=== PATIENT | female | born 2000 | race Two or more races ===

== ENCOUNTER 2024-07-21 22:33 | Emergency (ER) | payer MEDICAID, OTHER ==
[~2024-07-21] VITALS: Ht 152.4 cm; Wt 76.5 kg
[2024-07-21 22:45] VITALS: BP 120/66; PULSE 121; RESP 18; O2SAT 100
[2024-07-21 23:09] LABS: Basophils # (auto) 0.1 10 ^3/uL (0-0.2); Basophils % (auto) 0.5 % (0.0-2.0); Eosinophils # (auto) 0.1 10 ^3/uL (0-0.8); Eosinophils % (auto) 1.1 % (0.0-7.0); Hematocrit 40.2 % (36.0-46.0); Hemoglobin 13.7 g/dL (12.2-16.2); Lymphocytes # (auto) 2.7 10 ^3/uL (0.4-5.4); Lymphocytes % (auto) 21.2 % (10.0-50.0); Mean Corpuscular Hemoglobin 31.1 pg (28.0-32.0); Mean Corpuscular Volume 91.2 fL (80.0-100.0); Monocytes # (auto) 0.9 10 ^3/uL (0-1.3); Monocytes % (auto) 7.2 % (0.0-12.0); Neutrophils # (auto) 8.8 10 ^3/uL (1.6-8.6); Nucleated Red Blood Cells % 0.1 %; Platelet Count (auto) 211 10^3/uL (140-450); Red Blood Cells 4.41 10^6/uL (4.0-5.20); Red Cell Distribution Width 13.6 % (11.8-14.3); White Blood Cell 12.6 10^3/uL (4.4-10.8)
[2024-07-21 23:18] LABS: Urine Bacteria None Seen /hpf (None Seen)
[2024-07-21 23:20] LABS: Potassium 3.5 mmol/L (3.5-5.1); Sodium 140 mmol/L (136-145)
[2024-07-21 23:21] LABS: Anion Gap 8 (5-15); Calcium 9.6 mg/dL (8.7-10.4); Carbon Dioxide 24 mmol/L (20-31)
[2024-07-21 23:24] LABS: Urine Blood Negative /uL (Negative); Urine Clarity Clear (Clear); Urine Color Light-Yellow (Yellow); Urine Protein, UAD Negative (Negative); Urine Specific Gravity 1.018 (1.001-1.035); Urine Squamous Epithelial Cell FEW /hpf (<5); Urine Urobilinogen Normal (Negative); Urine WBC 1 /hpf (0 - 5); Urine pH 6.5 (5.0-9.0)
[2024-07-21 23:26] LABS: BUN/Creatinine Ratio 22.9 (10.0-20.0); Blood Urea Nitrogen 11 mg/dL (9-23); Chloride 108 mmol/L (98-107); Glucose 92 mg/dL (74-106)
--- NOTE | 2024-07-21 23:49 | DVH ---
OB EVALUATION, LESS THAN 14 WEEKS CLINICAL HISTORY: pelvic pain COMPARISON: None TECHNIQUE: Grayscale, color-flow Doppler, and spectral Doppler ultrasound of the pelvis is performed by transabdominal technique. FINDINGS: The uterus measures 10.0 x 7.7 x 6.3 cm. Intrauterine gestational sac and pole are identified. Yolk sac is also noted. Mean gestational sac diameter 3.7 cm. [place]-rump length 2.2 cm. Average ultrasound age 8 weeks 6 days. Estimated due date 02/24/2025. heart rate is 161 beats per minute. Small hypoechoic focus adjacent to the gestational sac measuring approximately 1.3 x 0.4 x 0.9 cm. The right ovary measures 2.9 x 2.4 x 2.3 cm. The left ovary measures 3.6 x 2.2 x 2.1 cm. Both ovarie s demonstrate dopplerable blood flow on spectral analysis. No significant free fluid identified in the cul-de-sac. IMPRESSION: Single living intrauterine gestation as above. Suspected small subchorionic hematoma. Recommend follow-up as clinically indicated.
--- NOTE | 2024-07-21 23:56 | ED.PDOC ---
OUTREACH ANALYST HPI Comments 23-year-old female complaining of pelvic pain and cramping. States the pain starts on the left-sided and radiates states solo. Patient states she was nine weeks . He was seen last week he was told she has a small blood sac in her uterus. States she was had no bleeding. She gets intermittent throbbing in her pelvic and vaginal region. States she does not see her OBGYN until beginning of the year. Says the pain has gotten worse over the last week. Chief Complaint: Abdominal Pain Time Seen by MD: 22:44 Reviewed Notes: Nurses Notes Allergies: Coded Allergies: Amoxicillin (Verified Allergy, Unknown, 07/21/24) Information Source: Patient Past Medical History PAST MEDICAL HISTORY: Denies Surgical History: Denies all surgeries CRA OFFICER History: No Pertinent CRA OFFICER History Constitutional: denies: chills, diaphoresis, fatigue, fever, malaise, sweats, weakness, others EENTM: denies: blurred vision, double vision, ear bleeding, ear discharge, ear drainage, ear pain, ear ringing, eye pain, eye redness, hearing loss, mouth pain, mouth swelling, nasal discharge, nose bleeding, nose congestion, nose kaleigh n, photophobia, tearing, throat pain, throat swelling, voice changes, others Respiratory: denies: cough, hemoptysis, orthopnea, SOB at rest, shortness of breath, SOB with excertion, stridor, wheezing, others Cardiovascular: denies: chest pain, dizzy spells, diaphoresis, Dyspnea on exertion, edema, irregular heart beat, left arm pain, lightheadedness, palpitations, PND, syncope, others Gastrointestinal: reports: abdominal pain; denies: abdomen distended, blood streaked bowels, constipated, diarrhea, dysphagia, difficulty swallowing, hematemesis, melena, nausea, poor appetite, poor fluid intake, rectal bleeding, rectal pain, vomiting, others Genitourinary: reports: dyspareunia, ; denies: abnormal vagina bleeding, burning, dysuria, flank pain, frequency, hematuria, incontinence, pain, vagina discharge, urgency, others Neurological: denies: dizziness, fainting, headache, left sided numbness, left sided weakness, numbness, paresthesia, pre-existing deficit, right sided numbness, right sided weakness, seizure, speech problems, tingling, tremors, weakness, others Musculoskeletal: denies: back pain, gout, joint pain, joint swelling, muscle pain, muscle stiffness, neck pain, others Integumetry: denies: bruises, change in color, change in hair/nails, dryness, laceration, lesions, lumps, rash, wounds, others Allergic/Immunocompromised: denies: Difficulty Healing, Frequent Infections, Hives, Itching, others Hematologic/Lymphatic: denies: anemia, blood clots, easy bleeding, easy bruising, swollen glands, others Physical Exam General Appearance: No Apparent Distress, Normal HEENT: Normal ENT Inspection, Pharynx Normal, TMs Normal Neck: Full Range of Motion, Non-Tender, Normal, Normal Inspection Respiratory: Chest Non-Tender, Lungs Clear, No Accessory Muscle Use, No Respiratory Distress, Normal Breath Sounds Cardiovascular: No Edema, No JVD, No Murmur, No Gallop, Normal Peripheral Pulses, Regular Rate/Rhythm Breast Exam: Deferred Gastrointestinal: No Organomegaly, Non Tender, No Pulsatile Mass, Normal Bowel Sounds, Soft Genitalia: Deferred Pelvic: Deferred Rectal: Deferred Extremities: No calf tenderness, Normal capillary refill, Normal inspection, Normal range of motion, Non-tender, No pedal edema Musculoskeletal : Apperance: Normal Neurologic: Alert, title supervisor II-XII nml as Tested, No Motor Deficits, Normal Affect, Normal Mood, No Sensory Deficits Cerebellar Function: Normal Reflexes: Normal Skin: Dry, Normal Color, Warm Lymphatic: No Adenopathy Was a procedure done? Was a procedure done?: No Differential Diagnosis (CRA OFFICER) Vaginal Bleeding: - Complete, - Incomplete, - Inevitable, - Missed X-Ray, Labs, Meds, VS Vital Signs Date Time Temp Pulse Resp B/P (MAP) Pulse Ox O2 Delivery O2 Flow Rate FiO2 07/21/24 22:45 98.9 121 18 120/66 (84) 100 Lab Test 07/21/24 22:55 07/21/24 22:47 Range/Units White Blood Count 12.6 H 4.4-10.8 10^3/uL Red Blood Count 4.41 4.0-5.20 10^6/uL Hemoglobin 13.7 12.2-16.2 g/dL Hematocrit 40.2 36.0-46.0 % Mean Corpuscular Volume 91.2 80.0-100.0 fL Mean Corpuscular Hemoglobin 31.1 28.0-32.0 pg Mean Corpuscular Hemoglobin Concent 34.0 32.0-36.0 g/dL Red Cell Distribution Width 13.6 11.8-14.3 % Platelet Count 211 140-450 10^3/uL Mean Platelet Volume 7.3 6.9-10.8 fL Neutrophils (%) (Auto) 70.0 37.0-80.0 % Lymphocytes (%) (Auto) 21.2 10.0-50.0 % Monocytes (%) (Auto) 7.2 0.0-12.0 % Eosinophils (%) (Auto) 1.1 0.0-7.0 % Basophils (%) (Auto) 0.5 0.0-2.0 % Neutrophils # (Auto) 8.8 H 1.6-8.6 10 ^3/uL Lymphocytes # (Auto) 2.7 0.4-5.4 10 ^3/uL Monocytes # (Auto) 0.9 0-1.3 10 ^3/uL Eosinophils # (Auto) 0.1 0-0.8 10 ^3/uL Basophils # (Auto) 0.1 0-0.2 10 ^3/uL Nucleated Red Blood Cells 0.1 % Sodium Level 140 136-145 mmol/L Potassium Level 3.5 3.5-5.1 mmol/L Chloride Level 108 H 98-107 mmol/L Carbon Dioxide Level 24 20-31 mmol/L Anion Gap 8 5-15 Blood Urea Nitrogen 11 9-23 mg/dL Creatinine 0.48 L 0.550-1.02 mg/dL Glomerular Filtration Rate Calc 135 >90 mL/min BUN/Creatinine Ratio 22.9 H 10.0-20.0 Serum Glucose 92 74-106 mg/dL Calcium Level 9.6 8.7-10.4 mg/dL Beta HCG, Quantitative 18004.0 H 1.5-4.2 mIU/mL Urine Color Light-yellow Yellow Urine Clarity Clear Clear Urine pH 6.5 5.0-9.0 Urine Specific [place] 1.018 1.001-1.035 Urine Protein Negative Negative Urine Ketones Negative Negative Urine Blood Negative Negative /uL Urine Nitrite Negative Negative Urine Bilirubin Negative Negative Urine Urobilinogen Normal Negative mg/dL Urine Leukocyte Esterase 1+ Negative /uL Urine RBC 2 0 - 4 /hpf Urine WBC 1 0 - 5 /hpf Urine Squamous Epithelial Cells Few <5 /hpf Urine Bacteria None seen None Seen /hpf Urine Glucose Normal Normal mg/dL X-Ray, Labs, Meds, VS Comment Imaging: X-rays and CT scans were reviewed and interpreted by this provider, imaging shows no fractures and no pathological disease. Pending radiology review. Laboratory: Labs reviewed and interpreted by this provider. No significant abnormalities noted. Patient has prior medical visits reviewed. Med reconciliation performed Vital signs reviewed Time of 1ST Reevaluation: 23:55 Reevaluation 1ST: Improved Patient Education/Counseling: Diagnosis, Treatment, Need For Follow Up (Follow up with OBGYN next available appointment) Family Education/Counseling: Diagnosis Departure 1 Departure Time of Disposition: 23:55 Impression: Primary Impression: First trimester Additional Impression: Subchorionic hemorrhage in first trimester Disposition: 01 HOME / SELF CARE / HOMELESS Condition: Fair Discharged With: Self Critical Care Note Critical Care Time?: No Stability Stability form required: No Heart Score Heart Score: Heart Score Response (Comments) Value History N/A 0 EKG N/A 0 Age N/A 0 Risk Factors N/A 0 Troponin N/A 0 Total 0 LUCIA CHARLTON SIMULATION SOFTWARE ENGINEER Jul 21, 2024 23:56
== END 2024-07-22 00:55 | disposition home or self-care (01) ==
LOC: ER 22:33
DX: O20.8 Other hemorrhage in early pregnancy (principal); O26.891 Other specified pregnancy related conditions, first trimester; R10.2 Pelvic and perineal pain; Z3A.09 9 weeks gestation of pregnancy; Z88.1 Allergy status to other antibiotic agents
CPT/HCPCS: 36415; 76801; 80048; 81001; 84702; 85025

== ENCOUNTER 2025-02-06 13:45 | Observation (INO) | payer MEDICAID ==
[2025-02-06 14:39] LABS: Hematocrit 39.7 % (36.0-46.0); Hemoglobin 13.6 g/dL (12.2-16.2); Mean Corpuscular Hemoglobin 30.7 pg (28.0-32.0); Mean Corpuscular Volume 90.0 fL (80.0-100.0); Nucleated Red Blood Cells % 0.0 %
[2025-02-06 14:48] LABS: Protein, Urine 32.3 mg/dL (1-14)
[2025-02-06 14:51] LABS: Urine Protein, UAD TRACE (Negative)
[2025-02-06 14:53] LABS: INR 0.92 (0.9-1.15); Partial Thromboplastin Time 28.2 SEC (24.5-34.5); Prothrombin Time 9.8 sec (9.3-11.8)
[2025-02-06 14:55] LABS: Alanine Aminotransferase 10 U/L (7-40); Albumin 3.8 g/dL (3.2-4.8); Anion Gap 10 (5-15); BUN/Creatinine Ratio 19.6 (10.0-20.0); Blood Urea Nitrogen 10 mg/dL (9-23); Calcium 9.2 mg/dL (8.7-10.4); Potassium 3.8 mmol/L (3.5-5.1); Sodium 140 mmol/L (136-145); Total Protein 6.0 g/dL (5.7-8.2); Uric Acid 4.2 mg/dL (3.1-7.8)
[2025-02-06 14:56] LABS: Alkaline Phosphatase 155 U/L (46-116); Bilirubin, Total 0.3 mg/dL (0.2-1.0); Carbon Dioxide 20 mmol/L (20-31); Chloride 110 mmol/L (98-107); Glucose 107 mg/dL (74-106)
--- NOTE | 2025-02-06 15:16 | DVH ---
BIOPHYSICAL PROFILE HISTORY: Possible SROM TECHNIQUE: Multiple transabdominal real-time grayscale sonographic images through the gravid uterus of the fetus with duplex Doppler color flow and M-mode spectral analysis FINDINGS: BIOPHYSICAL PROFILE: breathing score: 2 movement score: 2 tone score: 2 Quantitative COLUMBA score: 2 (COLUMBA: 16.39 Cm.) Total score: 8/8 The cervix obscured by head Single live fetus in cephalic presentation. heart rate 140 beats per minute. Grade 2 placenta without previa or abruption Single live fetus at 37 weeks 6 days Biophysical profile score 8/8 corresponding to an STEVE of 02/21/2025 IMPRESSION: 1. Biophysical profile score: 8/8
[2025-02-06] MEDS ORDERED: PREN-96 PO (15:45)
--- NOTE | 2025-02-07 07:42 | DVHDS2 ---
Physician Discharge Progress N Final Diagnosis: 37WKS IUP ROM RULED OUT Operations or Procedures: Operations or Procedures NST REACTIVE REVIWED,SONO Condition on Discharge: Good Disposition: Home Discharge Instructions: Diet: Regular Activity: No Restrictions, As Tolerated Medications: NA Follow Up Care: Specialist: 1W Discharge Statement: "Patient was advised to return to the ER or call 911 if any headaches, dizziness, shortness of breath, chest pain, abdominal pain, bleeding, fevers, or worsening of medical condition. Patient was counseled about treatment plan, medications, possible side effects, patientverbalized understanding. All questions were answered to the best of my ability. This discharge took greater then 30 minutes in planning, reviewing documentation, counseling the patient, and discussing with other team members." Visit Coding OBGYN Date of Service: Feb 06, 2025 Billing Provider: ISA CARRASCO DO LIME PLANT OPERATOR Common Visit Codes: 93707-[id number] OBS CARE (HIGH) LIME PLANT OPERATOR Procedure Codes: 87075-11- NON-STRESS TEST ISA CARRASCO DO Feb 07, 2025 07:41
== END 2025-02-06 16:03 | disposition home or self-care (01) ==
LOC: LDRP 13:45
PROVIDERS: ADMIT Obstetrics & Gynecology; ATTEND Obstetrics & Gynecology
DX: O13.3 Gestational [pregnancy-induced] hypertension without significant proteinuria, third trimester (principal); Z3A.37 37 weeks gestation of pregnancy; Z79.899 Other long term (current) drug therapy; Z98.890 Other specified postprocedural states
CPT/HCPCS: 36415; 59025; 76819; 80053; 81001; 82570; 84112; 84156; 84550; 85025; 85610; 85730; 86780; 87081; 94760; G0378

== ENCOUNTER 2025-02-13 06:32 | Observation (INO) | payer MEDICAID ==
[~2025-02-13 06:32] MED LIST: PREN-96 PO
[2025-02-13 10:54] LABS: Urine Protein, UAD Negative (Negative)
--- NOTE | 2025-02-13 10:57 | DVH ---
BIOPHYSICAL PROFILE HISTORY: PIH TECHNIQUE: Multiple transabdominal real-time grayscale sonographic images through the gravid uterus of the fetus with duplex Doppler color flow and M-mode spectral analysis FINDINGS: BIOPHYSICAL PROFILE: breathing score: 2 movement score: 2 tone score: 2 Quantitative COLUMBA score: 2 (COLUMBA: 15.4 Cm.) Total score: 8 The cervix not well visualized. Single live fetus in cephalic presentation. heart rate 156 beats per minute. Grade 2 posterior placenta without previa or abruption IMPRESSION: Biophysical profile score: 8
[2025-02-13 11:00] LABS: Hematocrit 38.2 % (36.0-46.0); Hemoglobin 12.9 g/dL (12.2-16.2); Mean Corpuscular Hemoglobin 30.7 pg (28.0-32.0); Mean Corpuscular Volume 91.0 fL (80.0-100.0); Nucleated Red Blood Cells % 0.1 %
[2025-02-13 11:13] LABS: Protein, Urine 22.2 mg/dL (1-14)
[2025-02-13 11:18] LABS: Anion Gap 10 (5-15); BUN/Creatinine Ratio 17.0 (10.0-20.0); Blood Urea Nitrogen 9 mg/dL (9-23); Calcium 9.3 mg/dL (8.7-10.4); Glucose 91 mg/dL (74-106); Potassium 3.7 mmol/L (3.5-5.1); Sodium 141 mmol/L (136-145); Uric Acid 4.4 mg/dL (3.1-7.8)
[2025-02-13 11:19] LABS: Alanine Aminotransferase < 9 U/L (7-40); Albumin 3.5 g/dL (3.2-4.8); Alkaline Phosphatase 146 U/L (46-116); Bilirubin, Total 0.3 mg/dL (0.2-1.0); Carbon Dioxide 19 mmol/L (20-31); Chloride 112 mmol/L (98-107); Total Protein 5.6 g/dL (5.7-8.2)
--- NOTE | 2025-02-15 08:19 | DVHDS2 ---
Physician Discharge Progress N Final Diagnosis: iup at 38wks [facility] Operations or Procedures: Operations or Procedures nst reactive reviwed,sono Condition on Discharge: Good Disposition: Home Discharge Instructions: Diet: Regular Activity: No Restrictions, As Tolerated Medications: na Follow Up Care: Primary Care Provider: 4d Discharge Statement: "Patient was advised to return to the ER or call 911 if any headaches, dizziness, shortness of breath, chest pain, abdominal pain, bleeding, fevers, or worsening of medical condition. Patient was counseled about treatment plan, medications, possible side effects, patientverbalized understanding. All questions were answered to the best of my ability. This discharge took greater then 30 minutes in planning, reviewing documentation, counseling the patient, and discussing with other team members." Visit Coding OBGYN Date of Service: Feb 13, 2025 Billing Provider: ISA CARRASCO DO PACKING TRACTOR MACHINE OPERATOR Common Visit Codes: [id number] OBS CARE (HIGH) PACKING TRACTOR MACHINE OPERATOR Procedure Codes: 70542-66- NON-STRESS TEST ISA CARRASCO DO Feb 15, 2025 08:19
== END 2025-02-13 11:52 | disposition home or self-care (01) ==
LOC: UNDOADMOB 10:04 → LDRP 10:04
PROVIDERS: ADMIT Obstetrics & Gynecology; ATTEND Obstetrics & Gynecology
DX: O13.3 Gestational [pregnancy-induced] hypertension without significant proteinuria, third trimester (principal); O62.9 Abnormality of forces of labor, unspecified; Z3A.38 38 weeks gestation of pregnancy; Z79.899 Other long term (current) drug therapy
CPT/HCPCS: 36415; 59025; 76819; 80053; 81001; 81002; 82570; 84156; 84550; 85025; 94760; G0378

== ENCOUNTER 2025-02-17 07:10 | Observation (INO) | payer MEDICAID ==
[~2025-02-17] VITALS: Ht 157.5 cm; Wt 88.9 kg
--- NOTE | 2025-02-17 13:34 | DVH ---
CLINICAL HISTORY: -induced hypertension. COMPARISON: US BIOPHYSICAL PROFILE on DOS: 02/13/25, US BIOPHYSICAL PROFILE on DOS: 02/06/25 TECHNIQUE: biophysical profile was performed. Transabdominal sonographic images of the fetus we re obtained. FINDINGS: The fetus is in cephalic position. heart rate measures 138 BPM. Amniotic fluid index measures 14.8 cm. The placenta is posterior in position without visualized evidence of previa or abru ption. BPP profile is an overall score of 8/8, with 2/2 points for breathing, with at least one episode of breathing over a 30 second duration during a 30 minute observation, 2/2 points for m ovements, with 3 or more discrete body or limb movements, 2/2 points for tone, with one or more episodes of extremity extension with return to flexion, or opening and closing of hand, and 2/ 2 points for amniotic fluid, with at least 1 pocket of amniotic fluid that measures 2 cm in 2 perpend icular planes. IMPRESSION: BPP score of 8/8.
--- NOTE | 2025-02-18 14:20 | DVHDS2 ---
Physician Discharge Progress N Final Diagnosis: 39wks pih ruled out Other Interventions Other Interventions nst reactive reviwed,sono Condition on Discharge: Good Disposition: Home Discharge Instructions: Diet: Regular Activity: Light activity Medications: na Follow Up Care: Specialist: 3d Discharge Statement: "Patient was advised to return to the ER or call 911 if any headaches, dizziness, shortness of breath, chest pain, abdominal pain, bleeding, fevers, or worsening of medical condition. Patient was counseled about treatment plan, medications, possible side effects, patientverbalized understanding. All questions were answered to the best of my ability. This discharge took greater then 30 minutes in planning, reviewing documentation, counseling the patient, and discussing with other team members." Visit Coding OBGYN Date of Service: Feb 17, 2025 Billing Provider: ISA CARRASCO DO CONCRETE BATCH PLANT OPERATOR Common Visit Codes: [id number] OBS CARE (HIGH) CONCRETE BATCH PLANT OPERATOR Procedure Codes: 53423-63- NON-STRESS TEST ISA CARRASCO DO Feb 18, 2025 14:19
== END 2025-02-17 13:54 | disposition home or self-care (01) ==
LOC: UNDOADMOB 11:02 → LDRP 11:02
PROVIDERS: ADMIT Obstetrics & Gynecology; ATTEND Obstetrics & Gynecology
DX: Z36.89 Encounter for other specified antenatal screening (principal); Z98.890 Other specified postprocedural states; Z79.899 Other long term (current) drug therapy; Z3A.39 39 weeks gestation of pregnancy
CPT/HCPCS: 59025; 76819; 81002; 94760; G0378

== ENCOUNTER 2025-02-21 08:00 | Observation (INO) | payer MEDICAID ==
--- NOTE | 2025-02-21 10:02 | DVH ---
CLINICAL HISTORY: Term . COMPARISON: US BIOPHYSICAL PROFILE on DOS: 02/17/25, US BIOPHYSICAL PROFILE on DOS: 02/13/25, US BIOPHY SICAL PROFILE on DOS: 02/06/25 TECHNIQUE: biophysical profile was performed. Transabdominal sonographic images of the fetus we re obtained. FINDINGS: The fetus is in cephalic position. heart rate measures 132 BPM. Amniotic fluid index measures 14.6 cm. The placenta is posterior in position without evidence of previa or abruption. Debr is visualized within the Amniotic fluid. BPP profile is an overall score of 8/8, with 2/2 points for breathing, with at least one episode of breathing over a 30 second duration during a 30 minute observation, 2/2 points for m ovements, with 3 or more discrete body or limb movements, 2/2 points for tone, with one or more episodes of extremity extension with return to flexion, or opening and closing of hand, and 2/ 2 points for amniotic fluid, with at least 1 pocket of amniotic fluid that measures 2 cm in 2 perpend icular planes. IMPRESSION: 1. BPP score of 8/8. 2. Debris visualized within the Amniotic fluid.
--- NOTE | 2025-02-21 15:15 | DVHDS2 ---
Physician Discharge Progress N Final Diagnosis: [id number] Operations or Procedures: Operations or Procedures nst reactive noted ,sono Condition on Discharge: Good Disposition: Home Discharge Instructions: Diet: Regular Activity: No Restrictions, As Tolerated Follow Up/Referral: Return to [facility]place tomorrow at 9:00 am for monitoring Medications: na Follow Up Care: Specialist: 1day for induction Discharge Statement: "Patient was advised to return to the ER or call 911 if any headaches, dizziness, shortness of breath, chest pain, abdominal pain, bleeding, fevers, or worsening of medical condition. Patient was counseled about treatment plan, medications, possible side effects, patientverbalized understanding. All questions were answered to the best of my ability. This discharge took greater then 30 minutes in planning, reviewing documentation , counseling the patient, and discussing with other team members." Visit Coding OBGYN Date of Service: Feb 21, 2025 Billing Provider: ISA CARRASCO DO RETAIL BUSINESS ANALYST Common Visit Codes: [id number] OBS CARE (HIGH) RETAIL BUSINESS ANALYST Procedure Codes: 02985-79- NON-STRESS TEST ISA CARRASCO DO Feb 21, 2025 15:15
== END 2025-02-21 14:14 | disposition home or self-care (01) ==
LOC: LDRP 08:00 → UNDOADMOB 08:00
PROVIDERS: ADMIT Obstetrics & Gynecology; ATTEND Obstetrics & Gynecology
DX: O48.0 Post-term pregnancy (principal); Z3A.40 40 weeks gestation of pregnancy; Z79.899 Other long term (current) drug therapy
CPT/HCPCS: 59025; 76819; 81002; G0378

== ENCOUNTER 2025-02-22 08:54 | Observation (INO) | payer MEDICAID ==
--- NOTE | 2025-02-22 11:27 | DVHDS2 ---
Physician Discharge Progress N Final Diagnosis: IUP 40+ wk, Term Secondary Diagnosis: Encounter for NST only Commentary: Commentary Not in labor Category 1 tracing Condition on Discharge: Stable Disposition: Home Discharge Instructions: Diet: Regular Activity: No Restrictions, As Tolerated Follow Up/Referral: Return to birthplace tomorrow morning at 7:00 AM for induction of labor. Return to hospital for decreased movement or any related concerns. Medications: na Follow Up Care: Discharge Statement: "Patient was advised to return to the ER or call 911 if any headaches, dizz iness, shortness of breath, chest pain, abdominal pain, bleeding, fevers, or worsening of medical condition. Patient was counseled about treatment plan, medications, possible side effects, patientverbalized understanding. All questions were answered to the best of my ability. This discharge took greater then 30 minutes in planning, reviewing documentation, counseling the patient, and discussing with other team members." Visit Coding OBGYN Date of Service: Feb 22, 2025 Billing Provider: KHURRAM FERNANDEZ DO AUTOMOTIVE MACHINIST Common Visit Codes: 89833-NVY/OBS SAME DATE (MOD) KHURRAM FERNANDEZ DO Feb 22, 2025 11:27
== END 2025-02-22 10:15 | disposition home or self-care (01) ==
LOC: LDRP 08:57
PROVIDERS: ADMIT Obstetrics & Gynecology; ATTEND Obstetrics & Gynecology
DX: O48.0 Post-term pregnancy (principal); Z98.890 Other specified postprocedural states; Z79.899 Other long term (current) drug therapy; Z3A.40 40 weeks gestation of pregnancy
CPT/HCPCS: 59025; 81002; 94760; G0378

== ENCOUNTER 2025-02-23 10:00 | Inpatient (IN) | payer MEDICAID ==
[~2025-02-23] VITALS: Ht 157.5 cm; Wt 89.8 kg
[2025-02-23] MEDS ORDERED: LIDOCAINE 2%HCL (LOCAL ANESTH.) INJ 20ML MDV IJ PRN (10:30)
[2025-02-23] MEDS ORDERED: BUTORPHANOL TARTRATE 2 MG/1 ML VIAL IV PRN ×2 (10:30)
[2025-02-23 10:59] LABS: Hematocrit 38.0 % (36.0-46.0); Hemoglobin 13.2 g/dL (12.2-16.2); Mean Corpuscular Hemoglobin 31.4 pg (28.0-32.0); Mean Corpuscular Volume 90.5 fL (80.0-100.0); Nucleated Red Blood Cells % 0.1 %
[2025-02-23 11:17] LABS: Albumin 3.8 g/dL (3.2-4.8); Anion Gap 13 (5-15); BUN/Creatinine Ratio 14.8 (10.0-20.0); Bilirubin, Total 0.4 mg/dL (0.2-1.0); Calcium 9.7 mg/dL (8.7-10.4); Potassium 3.6 mmol/L (3.5-5.1); Sodium 140 mmol/L (136-145); Total Protein 5.8 g/dL (5.7-8.2)
[2025-02-23 11:19] LABS: Alanine Aminotransferase 9 U/L (7-40); Alkaline Phosphatase 165 U/L (46-116); Blood Urea Nitrogen 9 mg/dL (9-23); Carbon Dioxide 17 mmol/L (20-31); Chloride 110 mmol/L (98-107); Glucose 140 mg/dL (74-106)
[2025-02-23 11:20] LABS: INR 0.92 (0.9-1.15); Partial Thromboplastin Time 30.5 SEC (24.5-34.5); Prothrombin Time 9.8 sec (9.3-11.8)
[2025-02-23 11:22] LABS: Urine Protein, UAD Negative (Negative)
[2025-02-23 11:42] LABS: Amphetamine Screen, Urine Neg (NEGATIVE); Barbiturate Scree,Urine Neg (NEGATIVE); Benzodiazephine Screen, Urine Neg (NEGATIVE); Cannabinoid Screen, Urine Neg (NEGATIVE); Cocaine Screen, Urine Neg (NEGATIVE); Opiate Scree,Urine Neg (NEGATIVE); Phencyclidine Screen, Urine Neg (NEGATIVE)
[2025-02-23] MEDS ORDERED: VANCOMYCIN 1GM/200ML PM 200 ML IV SCH (11:45)
[2025-02-23] MEDS: LACTATED RINGER'S 1,000 ML IV SCH (12:25)
[2025-02-23] MEDS ORDERED: NALBUPHINE HCL 10 MG/1ml INJECTION IV PRN (13:15)
[2025-02-23] MEDS ORDERED: ONDANSETRON HCL 4 MG/2 ML VIAL IV PRN (13:15)
[2025-02-23] MEDS: DINOPROSTONE 10MG VAG SUPP PV ONE (13:34)
--- NOTE | 2025-02-23 13:49 | DVHHP2 ---
OB CC & HPI Date Date of Admission: Feb 23, 2025 Patient Identification: : 3 Para: 1 EDC: Feb 21, 2025 EGA: 40.2 Chief Complaints: Reason for admission: induction of labor Indication for induction: maternal discomfort History of Present Complaints 24y IUP 40.2 wk care w/ Dr Hernandez Scheduled for elective induction of labor at Term GBS unknown, penicillin allergic (anaphylaxis) Denies any complications. Denies HTN, GDM, Anemia. Past Medical History Cardiac: No pertinent Hx Pulmonary: No pertinent Hx Central Nervous System: No pertinent Hx GI: No pertinent Hx Hemotology/Oncology: No pertinent Hx Hepatobiliary: No pertinent Hx Psychiatric: No pertinent Hx Musculoskeletal: No pertinent Hx Rheumotologic: No pertinent Hx Infectious Disease: No peritnent Hx ENT: No pertinent Hx Renal/: No pertinent Hx Endocrine: No pertinent Hx Dermatology: No pertinent Hx Past Surgical History: No pertinent Hx OB History OB History Care: Good Care Ultrasounds: Normal mid trimester US Obstetrical Complications: None Medical Complications: None Allergies: Coded Allergies: Amoxicillin (Verified Allergy, Unknown, 07/21/24) Home Meds Reported Medications Vit W/ Ferrous Fumara ( One Daily) Daily Tab, 1 TAB PO DAILY, #90 TAB 3 Refills 02/06/25 Current Medications Current Medications Medications (Trade) Dose Ordered Sig/William Route PRN Reason Start Time Stop Time Status Last Admin Lactated Ringer's 1,000 ml @ 125 mls/hr Q8H IV 02/23/25 10:30 02/23/25 12:25 Yael Allredel (Tucks) 1 pad PRN PRN TOP PERINEAL AREA DISCOMFORT 02/23/25 10:30 Sodium Lauryl Sulfate (Phisoderm) 240 ml PRN PRN TOP PERINEAL AREA DISCOMFORT 02/23/25 10:30 Benzocaine (Dermoplast) 1 applic PRN PRN TOP PERINEAL AREA DISCOMFORT 02/23/25 10:30 Butorphanol Tartrate (Stadol Injection) 1 mg Q4HPRN PRN IV MODERATE PAIN (4-6 PAIN SCALE) 02/23/25 10:30 02/23/25 13:09 DC Butorphanol Tartrate (Stadol Injection) 2 mg Q4HPRN PRN IV SEVERE PAIN (7-10 PAIN SCALE) 02/23/25 10:30 02/23/25 13:09 DC Lidocaine HCl (Xylocaine) 20 ml ONCE PRN IJ PERINEAL AREA DISCOMFORT 02/23/25 10:30 Vancomycin HCl 200 ml @ 200 mls/hr Q12H IV 02/23/25 11:45 02/23/25 12:41 DC Vancomycin HCl 200 ml @ 200 mls/hr Q12H IV 02/24/25 01:00 UNV Vancomycin HCl 250 ml @ 250 mls/hr Q1H IV 02/23/25 12:45 02/23/25 14:44 UNV Ondansetron HCl (Zofran) 4 mg Q4HPRN PRN IV NAUSEA / VOMITING 02/23/25 13:15 UNV Nalbuphine HCl (Nubain) 10 mg Q4HP PRN IV MODERATE PAIN (4-6 PAIN SCALE) 02/23/25 13:15 UNV Family & Social History Family/Social History Blood Type: O+ RPR/VDRL: Negative GBS Status: Unknown HBsAG: Negative Review of Systems Constitutional: No symptom reported Ears, Nose, & Throat: No symptom reported Eyes: No symptom reported Pulmonary/Respiratory: No symptom reported Cardiovascular: No symptom reported Gastrointestinal: No symptom reported Genitourinary: No symptom reported Musculoskeletal: No symptom reported Skin: No symptom reported Psychiatric: No symptom reported Endocrine: No symptom reported Hemotologic/Lymphatic: No symptom reported OB Admission Exam Physical Exam Vitals: Afeb VS stable HEENT: NCAT Heart: Rhythm Normal Lungs: Clear Abdomen: Gravid Extremities: Normal Reflexes: Normal Pelvic Exam: Pelvis clinically adequate for labor, proven to 7.5 lbs w/ last delivery Clinical EFW 3600gm Cervical Dilatation: Fingertip Effacement: 0% Station: -3 Membranes: Intact Heart Rate: 130's Accelerations: Accelerations Present Decelerations: No Decelerations Short Term Variability: Present Halfway Variability: Average (6-25) Contractions on Admission: None OB Plan Plan Admitting Diagnosis: Term IUP 40.2 wk, Scheduled Elective Induction of labor GBS unknown Obesity, BMI > 35 Categ 1 FHR tracing Plan: Induction Other Plan: Gracia score= 2 Induction of labor requiring cervical ripening, Cervidil placed in posterior fornix Tolerated well Will start GBS prophylaxis for Unknown status in active labor or at time of SROM with Vancomycin per current guidelines R/B/A of induction discussed. Informed consent obtained Indications for C/S and/or vacuum delivery reviewed Visit Coding OBGYN Date of Service: Feb 23, 2025 Billing Provider: KHURRAM FERNANDEZ DO GUEST RELATION OFFICER Common Visit Codes: [id number] INP/OBS CARE (HIGH) KHURRAM FERNANDEZ DO Feb 23, 2025 13:48
--- NOTE | 2025-02-23 14:45 | DVH ---
OB ULTRASOUND, LIMITED CLINICAL INDICATION: minimal/absent variability TECHNIQUE: Multiple grayscale ultrasound and M-mode images were obtained of the pelvis for evaluation of intrauterine . COMPARISON: US BIOPHYSICAL PROFILE on DOS: 02/21/25, US BIOPHYSICAL PROFILE on DOS: 02/17/25, US BIOPHY SICAL PROFILE on DOS: 02/13/25 FINDINGS: A single living fetus is seen in cephalic presentation. Biophysical profile: 03/07 breathin movements: 2 tone: 2 Amniotic fluid: 2 Placenta: Posterior Amniotic fluid: Visibly normal. COLUMBA 10.5 cm. heart rate: 136 beats/min. A complete anatomic survey was not performed on this exam. IMPRESSION: Biophysical profile: 03/07
--- NOTE | 2025-02-23 14:45 | DVH ---
EXAM DESCRIPTION: LIMITED TRANSABDOMINAL OBSTETRICAL ULTRASOUND CLINICAL HISTORY: EFW COMPARISON: None TECHNIQUE: Limited obstretical ultrasound was performed for the findings listed below. FINDINGS: BPD 8.9 cm - 36 weeks and 1 day HC 32.96 cm - 37 weeks and 4 days AC 34.28 cm - 38 weeks and 1 day FL 7.4 cm - 37 weeks and 6 days Average sonographic gestational age - 37 weeks and 3 days STEVE 03/13/25 Estimated weight 3308g IMPRESSION: 1. As noted above.
[2025-02-23] MEDS: VANCOMYCIN 1GM/200ML PM 250 ML IV SCH (15:13)
[2025-02-23] MEDS: diphenhdrAMINE HCL 50 MG/1 ML VL ONE (17:12)
[2025-02-23] MEDS: diphenhdrAMINE HCL 50 MG/1 ML VL IV ONE (17:15)
[2025-02-24] VITALS (13 sets, daily range): BP systolic 105–124; BP diastolic 56–69; PULSE 80–98; RESP 16–18; TEMP 97.7–98.9; O2SAT 95–100
[2025-02-24] MEDS: WITCH HAZEL-GLYCERIN PAD TOP PRN (02:31)
[2025-02-24] MEDS: DERMOPLAST 60ML BOTTLE TOP PRN (02:31)
[2025-02-24] MEDS: PHISODERM TOP SOLN 240ML BTL TOP PRN (02:32)
[2025-02-24] MEDS ORDERED: VANCOMYCIN 1GM/200ML PM 200 ML IV SCH (04:00)
--- NOTE | 2025-02-24 06:17 | DVHPN2 ---
OB Labor Progress Note Date and Time Seen Date Seen: Feb 24, 2025 Time Seen: 06:13 Subjective Patient reports: No new complaints Objective Vital Signs Afeb VS stable Monitoring Method Monitoring Method: Internal (IUPC/FSE placed) Heart Rate Heart Rate Baseline: 140 Heart Rate Variability: Moderate (with episodes of minimal variability) Presence of FHR Accelerations: Yes Presence of FHR Decelerations: No If NO Corrective Measures Comp: Position changes and IV fluid bolus Contractions Contractions Frequency: Other (Every 2- 3 mins) Contractions Intensity: Moderate Contractions Resting Tone: Relaxed Membranes Membranes: Ruptured (AROM) Amniotic Fluid Color: LABEL CUTTER Meconium Vaginal Exam Vag Exam Deferred: No Vaginal Exam Dilation: 4 Vaginal Exam Effacement: 50 Vaginal Exam Station: -2 Vaginal Exam Presentation: VTX Vaginal Exam Show: None Medications Medications - Pitocin: No Medication - Epidural: No Lab Results Lab Results Current Medications Medications (Trade) Dose Ordered Sig/William Start Time Stop Time Status Last Admin Dose Admin Lactated Ringer's 1,000 ml @ 125 mls/hr Q8H 02/23/25 10:30 02/24/25 05:51 125 MLS/HR Witch Aimee (Tucks) 1 pad PRN PRN 02/23/25 10:30 02/24/25 02:31 1 PAD Sodium Lauryl Sulfate (Phisoderm) 240 ml PRN PRN 02/23/25 10:30 02/24/25 02:32 240 ML Benzocaine (Dermoplast) 1 applic PRN PRN 02/23/25 10:30 02/24/25 02:31 1 APPLIC Butorphanol Tartrate (Stadol Injection) 1 mg Q4HPRN PRN 02/23/25 10:30 02/23/25 13:09 DC Butorphanol Tartrate (Stadol Injection) 2 mg Q4HPRN PRN 02/23/25 10:30 02/23/25 13:09 DC Lidocaine HCl (Xylocaine) 20 ml ONCE PRN 02/23/25 10:30 Vancomycin HCl 200 ml @ 200 mls/hr Q12H 02/23/25 11:45 02/23/25 12:41 DC Dinoprostone (Cervidil Suppository) 1 supp ONCE ONCE 02/23/25 12:15 02/23/25 13:09 DC 02/23/25 13:34 1 SUPP Vancomycin HCl 250 ml @ 250 mls/hr Q1H 02/23/25 14:13 02/23/25 16:12 DC 02/23/25 16:02 250 MLS/HR Ondansetron HCl (Zofran) 4 mg Q4HPRN PRN 02/23/25 13:15 Nalbuphine HCl (Nubain) 10 mg Q4HP PRN 02/23/25 13:15 Diphenhydramine HCl (Benadryl Injection) 50 mg ONCE ONCE 02/23/25 17:15 02/23/25 17:17 DC Misoprostol (Cytotec) 50 mcg Q4HPRN PRN 02/24/25 02:15 02/24/25 02:31 50 MCG Naloxone HCl (Narcan) 0.2 mg PRN ONCE 02/24/25 07:00 02/24/25 07:01 DC Ephedrine Sulfate (ePHEDrine SULFATE) 10 mg PRN ONCE 02/24/25 07:00 02/24/25 07:01 DC Lactated Ringer's 1,000 ml @ 1,000 mls/hr Q1H ONCE 02/24/25 07:00 02/24/25 07:59 Laboratory Tests Test 02/23/25 11:40 02/23/25 10:43 02/23/25 10:00 Range/Units HIV (1&2) Antibody Negative Negative White Blood Count 8.0 4.4-10.8 10^3/uL Red Blood Count 4.20 4.0-5.20 10^6/uL Hemoglobin 13.2 12.2-16.2 g/dL Hematocrit 38.0 36.0-46.0 % Mean Corpuscular Volume 90.5 80.0-100.0 fL Mean Corpuscular Hemoglobin 31.4 28.0-32.0 pg Mean Corpuscular Hemoglobin Concent 34.7 32.0-36.0 g/dL Red Cell Distribution Width 15.0 H 11.8-14.3 % Platelet Count 133 L 140-450 10^3/uL Mean Platelet Volume 8.2 6.9-10.8 fL Neutrophils (%) (Auto) 73.5 37.0-80.0 % Lymphocytes (%) (Auto) 19.4 10.0-50.0 % Monocytes (%) (Auto) 5.9 0.0-12.0 % Eosinophils (%) (Auto) 0.9 0.0-7.0 % Basophils (%) (Auto) 0.3 0.0-2.0 % Neutrophils # (Auto) 5.9 1.6-8.6 10 ^3/uL Lymphocytes # (Auto) 1.5 0.4-5.4 10 ^3/uL Monocytes # (Auto) 0.5 0-1.3 10 ^3/uL Eosinophils # (Auto) 0.1 0-0.8 10 ^3/uL Basophils # (Auto) 0 0-0.2 10 ^3/uL Nucleated Red Blood Cells 0.1 % Prothrombin Time 9.8 9.3-11.8 sec Prothrombin Time INR 0.92 0.9-1.15 Activated Partial Thromboplast Time 30.5 24.5-34.5 SEC Sodium Level 140 136-145 mmol/L Potassium Level 3.6 3.5-5.1 mmol/L Chloride Level 110 H 98-107 mmol/L Carbon Dioxide Level 17 L 20-31 mmol/L Anion Gap 13 5-15 Blood Urea Nitrogen 9 9-23 mg/dL Creatinine 0.61 0.550-1.02 mg/dL Glomerular Filtration Rate Calc 126 >90 mL/min BUN/Creatinine Ratio 14.8 10.0-20.0 Serum Glucose 140 H 74-106 mg/dL Calcium Level 9.7 8.7-10.4 mg/dL Total Bilirubin 0.4 0.2-1.0 mg/dL Aspartate Amino Transferase (AST) 17 13-40 U/L Alanine Aminotransferase (ALT) 9 7-40 U/L Alkaline Phosphatase 165 H 46-116 U/L Total Protein 5.8 5.7-8.2 g/dL Albumin 3.8 3.2-4.8 g/dL Treponema pallidum Antibody Non-reactive Negative Hepatitis B Surface Antigen Negative Negative Hepatitis C Antibody Pending Rubella Antibody Pending Urine Color Light-yellow Yellow Urine Clarity Clear Clear Urine pH 6.5 5.0-9.0 Urine Specific [place] 1.010 1.001-1.035 Urine Protein Negative Negative Urine Ketones Negative Negative Urine Blood Negative Negative /uL Urine Nitrite Negative Negative Urine Bilirubin Negative Negative Urine Urobilinogen Normal Negative mg/dL Urine Leukocyte Esterase 1+ Negative /uL Urine RBC <1 0 - 4 /hpf Urine Microscopic WBC 2 0-5 /HPF Urine Squamous Epithelial Cells Few <5 /hpf Urine Bacteria Few H None Seen /hpf Urine Glucose Normal Normal mg/dL Urine Opiates Screen Neg NEGATIVE Urine Fentanyl Screen Neg NEGATIVE Urine Barbiturates Screen Neg NEGATIVE Urine Phencyclidine Screen Neg NEGATIVE Urine Amphetamines Screen Neg NEGATIVE Urine Benzodiazepines Screen Neg NEGATIVE Urine Cocaine Screen Neg NEGATIVE Urine Cannabinoids Screen Neg NEGATIVE Assessment Assessment Term IUP 40+ wk, elective labor induction Intermittent Categ 2 FHR (minimal variability w/out decels) s/p AROM, 1+ Mec fluid GBS neg Plan Plan Continue labor induction Continue to observe FHR pattern, episodes of minimal variability without any sustained recurrent decels Currently category 1 Plan discussed with: Patient, Other (RN) Visit Coding OBGYN Date of Service: Feb 24, 2025 Billing Provider: KHURRAM FERNANDEZ DO JOURNEYMAN WIREMAN Common Visit Codes: [id number] INP/OBS CARE(HIGH) KHURRAM FERNANDEZ DO Feb 24, 2025 06:17
[2025-02-24] MEDS: LACTATED RINGER'S 1,000 ML IV ONE (07:00)
[2025-02-24] MEDS: NALOXONE HCL 0.4 MG/ML VIAL IV ONE (07:00)
[2025-02-24] MEDS: ROPIVACAINE HCL 100 ML ONE (07:30)
[2025-02-24] MEDS: TERBUTALINE SULFATE 1 MG/ML 1ML VIAL SC SCH (09:45)
[2025-02-24] MEDS: Lidocaine W-Epinephrine 1.5%-1:200,000 INJ 10ml Vial ONE (09:54)
[2025-02-24] MEDS: LIDOCAINE HCL 2 %PF INJ 10ML AMP IJ ONE (09:55)
[2025-02-24] MEDS: CLINDAMYCIN 900MG IV 50 ML IV ONE (10:02)
[2025-02-24] MEDS ORDERED: MORPHINE SULF PF 5 MG/10 ML VIAL ONE (10:03)
[2025-02-24] MEDS ORDERED: fentaNYL CITRATE 100 MCG/2 ML VL ONE (10:03)
[2025-02-24] MEDS ORDERED: ONDANSETRON HCL 4 MG/2 ML VIAL ONE (10:04)
[2025-02-24] MEDS ORDERED: GLYCOPYRROLATE 0.2 MG/ML 1ML VIAL ONE (10:04)
[2025-02-24] MEDS ORDERED: KETOROLAC TROMETH 30 MG/ML 1ML VIAL ONE (10:04)
[2025-02-24] MEDS ORDERED: ceFAZolin 1GM/50ML 50 ML IV SCH (10:30)
[2025-02-24] MEDS ORDERED: ONDANSETRON HCL 4 MG/2 ML VIAL IV PRN ×2 (10:30→11:30)
[2025-02-24] MEDS: LACT. RINGERS/OXYTOCIN 20UNITS 1,000 ML IV ONE (10:30)
[2025-02-24] MEDS: CARBOPROST TROMETHAMINE 250 MCG/1ML VIAL IM ONE (10:44)
[2025-02-24] MEDS ORDERED: GENTAMICIN PER PHARMACY 0 ML IV SCH (10:45)
--- NOTE | 2025-02-24 10:50 | DVHHP ---
ADMIT DATE: 02/23/2025 CHIEF COMPLAINT: Nonreassuring heart tracing. HISTORY OF PRESENT ILLNESS: The patient is a 1, para 1 female with EDC 02/21, admitted for induction of labor yesterday. The patient received one Cytotec, went from fingertip to 2 cm 5 cm on her own, then had a prolonged decel. Dr. Brooks was managing her. He called me to assist him to do the on this patient due to the fact that he was in another MEDICAL RECORD ADMINISTRATOR case. The patient was intubated. Subsequently, I will be performing the primary . The patient had thick meconium. PAST MEDICAL HISTORY: None. PAST SURGICAL HISTORY: None. PAST MEDICAL HISTORY: Herpes genitalia. PAST SURGICAL HISTORY: None. SOCIAL HISTORY: None. FAMILY HISTORY: None. OBSTETRIC AND GYNECOLOGIC HISTORY: Primigravid. REVIEW OF SYSTEMS: Consistent with HPI. PHYSICAL EXAMINATION: VITAL SIGNS: Stable, afebrile. HEENT: Within normal limits. CARDIOVASCULAR: Regular rate and rhythm. LUNGS: Clear to auscultation. BREASTS: Symmetrical, no masses. ABDOMEN: Gravid. Positive heart. PELVIC: 5, 90, -1. No evidence of any herpetic lesion on the vulva. EXTREMITIES: No clubbing, cyanosis, or edema. IMPRESSION: * Intrauterine at 40+ weeks, induction of labor failed. * Nonreassuring heart tracing, bradycardia. * History of herpes genitalia, currently no lesions. * Meconium. PLAN: Primary low transverse section. Informed consent was obtained. Risks and complications of surgery including infection, bleeding, hematoma formation, injury to bowel, bladder, surrounding organ, possibility of DVT, pulmonary embolism, and risks of anesthesia discussed with the patient. Options reviewed. All questions answered. The patient fully understands. She wishes to proceed with . DO WALTER Mina/JAYLIN/TOMAS TID: [id number] RECEIPT: [id number]
[2025-02-24] MEDS ORDERED: ACETAMINOPHEN IV 1000 MG/100ML (10MG/ML) IV ONE (11:30)
[2025-02-24] MEDS ORDERED: NALOXONE HCL 0.4 MG/ML VIAL IV PRN (11:30)
[2025-02-24] MEDS ORDERED: diphenhdrAMINE HCL 50 MG/1 ML VL IV PRN (11:30)
[2025-02-24] MEDS: DIPHENOXYLATE W/ATROPINE 2.5 MG TAB PO STA (11:36)
[2025-02-24] MEDS: D5W 5% IV ONE (11:40)
[2025-02-24] MEDS: GENTAMICIN SULFATE IV ONE (11:40)
--- NOTE | 2025-02-24 11:59 | DVHOP2 ---
Operative Report DATE OF OPERATION: 02/24/25 PREOPERATIVE DIAGNOSES: Term with nonreassuring fht,fetus at risk,meconium ,morbid obesity POSTOPERATIVE DIAGNOSES:same,op SURGEON: Anisa Hernandez D.O./madi ANESTHESIOLOGIST: job TYPE OF ANESTHESIA : spinal CONSENT: The patient was informed of the risks and benefits of the procedure. The patient was informed of the risks and benefits of the procedure. These include but are not limited to , complications of anesthesia, postoperative infection, incomplete relief of symptoms, recurrence of symptoms, damage to blood vessels, nerves and tendons, deep venous thrombosis, pulmonary embolism and possible need for repeat surgery in the future. FINDINGS: Baby [g] with Apgars of [8] and [9]. Grossly normal appearing tubes and ovaries.op,no fld noted PROCEDURES: Primary low transverse section. PROCEDURE IN DETAIL: The patient was taken to the operating room. She already had an epidural in place. She was then placed in supine position with a leftward tilt. A Pfannenstiel skin incision was made 2 cm above the symphysis pubis. This incision was carried to the underlying layer of fascia. The fascia was nicked in the midline. The incision was extended laterally. The superior aspect of the fascial incision was grasped and elevated. The same procedure was done to the inferior aspect of the fascial incision. The rectus muscles were then in the midline. Peritoneum was identified and entered. Peritoneal incision was extended superiorly and inferiorly with good visualization of the bladder. Bladder blade was inserted. Vesicouterine peritoneum was identified and entered. Lower uterine segment was incised in a transverse fashion. The infant was delivered from vertex presentation. was baby f with Apgars [8] and [9]. Placenta was then removed manually. Uterus was exteriorized and cleared of all clots and debris. The incision was repaired using 0 Vicryl in a double-layered fashion. No blee ding was noted. Uterus was then returned to the abdomen. The gutters were cleared off all clots and debris. Peritoneum was closed using 0 Vicryl, fascia was closed using 0 Maxon, and skin was closed using mariel. The patient tolerated the procedure well. She was taken to the recovery room in stable condition. ESTIMATED BLOOD LOSS: Estimated blood loss was noted to be 800 mL. Visit Coding OBGYN Date of Service: Feb 24, 2025 Billing Provider: ANISA HERNANDEZ DO STEAMFITTER SUPERVISOR Common Visit Codes: [id number] OBS CARE (HIGH) STEAMFITTER SUPERVISOR Procedure Codes: [id number] DELIVERY ONLY ANISA HERNANDEZ DO Feb 24, 2025 11:59
--- NOTE | 2025-02-24 12:02 | POSTOP ---
Post-Operative Note Post-Operative Note Preop Diagnosis term preg w/meconium,nonreassuring fht,fetus at risk,morbid obesity Postop Diagnosis: same Operation performed pltcs Specimen baby girl,apgars 8-9,vx,op,scant fld Anesthesia: Regional Anesthesiologist: job Blood Loss(fluid mgmt) 800ml Surgeon Isa Hernandez Bin Packer madi Implant na Complications & Mgmt none Date 02/24/25 Time 12:00 Visit Coding OBGYN Date of Service: Feb 24, 2025 Billing Provider: ISA HERNANDEZ DO ENTRY LEVEL FINANCIAL ANALYST Common Visit Codes: [id number] OBS CARE (HIGH) ENTRY LEVEL FINANCIAL ANALYST Procedure Codes: [id number] DELIVERY ONLY ISA HERNANDEZ DO Feb 24, 2025 12:02
[2025-02-24] MEDS ORDERED: AZITHROMYCIN 500MG/ 250ML 250 ML IV ONE (12:45)
[2025-02-24] MEDS: ACETAMINOPHEN IV 1000 MG/100ML (10MG/ML) IV PRN (13:35)
[2025-02-24] MEDS: AZITHROMYCIN 500MG/ 250ML 250 ML IV ONE (20:01)
[2025-02-24 21:14] LABS: Hematocrit 35.8 % (36.0-46.0); Hemoglobin 12.4 g/dL (12.2-16.2); Mean Corpuscular Hemoglobin 31.2 pg (28.0-32.0); Mean Corpuscular Volume 90.3 fL (80.0-100.0); Nucleated Red Blood Cells % 0.0 %
[2025-02-25] VITALS (15 sets, daily range): BP systolic 95–124; BP diastolic 44–77; PULSE 84–104; RESP 16–20; TEMP 97.6–98.4; O2SAT 96–100
[2025-02-25] MEDS: KETOROLAC TROMETH 30 MG/ML 1ML VIAL IV PRN (01:40)
[2025-02-25 03:56] LABS: Hematocrit 32.0 % (36.0-46.0); Hemoglobin 11.3 g/dL (12.2-16.2); Mean Corpuscular Hemoglobin 32.0 pg (28.0-32.0); Mean Corpuscular Volume 90.5 fL (80.0-100.0); Nucleated Red Blood Cells % 0.0 %
--- NOTE | 2025-02-25 07:08 | DVHPN2 ---
Progress Note Date Seen: Feb 25, 2025 Subjective POD#1 s/p 1' C/S for NRFHR (categ 2 tracing) Doing well. Pain controlled. Lochia mild to moderate. Tolerating PO well. + Flatus vital signs Vital Sign Date Time Temp Pulse Resp B/P (MAP) Pulse Ox O2 Delivery O2 Flow Rate FiO2 02/25/25 06:48 Room Air 02/25/25 06:30 98.4 97 18 110/71 (84) 97 98.4 02/24/25 11:04 0 100 Total Intake and Output 02/24/25 02/24/25 02/25/25 15:00 23:00 07:00 Intake Total 1300 ml 1625 ml 800 ml Output Total 900 ml 2175 ml 800 ml Balance 400 ml -550 ml 0 ml medications Current Medications Medications Dose Ordered Sig/William Route Start Time Stop Time Status Last Admin Dose Admin Lactated Ringer's 1,000 ml @ 125 mls/hr Q8H IV 02/23/25 10:30 02/25/25 04:56 125 MLS/HR Yael Aimee 1 pad PRN PRN TOP 02/23/25 10:30 02/24/25 02:31 1 PAD Sodium Lauryl Sulfate 240 ml PRN PRN TOP 02/23/25 10:30 02/24/25 02:32 240 ML Benzocaine 1 applic PRN PRN TOP 02/23/25 10:30 02/24/25 02:31 1 APPLIC Lidocaine HCl 20 ml ONCE PRN IJ 02/23/25 10:30 Vancomycin HCl 200 ml @ 200 mls/hr Q12H IV 02/24/25 04:00 Cancel Cefazolin Sodium 50 ml @ 100 mls/hr Q8H IV 02/24/25 10:30 02/25/25 02:59 Cancel Gentamicin Sulfate 0 ml @ 0 mls/hr PER PHARMACY IV 02/24/25 10:45 Cancel Diphenhydramine HCl 25 mg Q4HP PRN IV 02/24/25 11:30 Ondansetron HCl 4 mg Q4HP PRN IV 02/24/25 11:30 Ketorolac Tromethamine 30 mg Q6HP PRN IV 02/24/25 11:30 03/01/25 11:29 02/25/25 01:40 30 MG Acetaminophen 1,000 mg Q8H PRN IV 02/24/25 12:30 02/25/25 06:33 1,000 MG laboratory and microbiology Laboratory Tests 02/25/25 03:44 02/23/25 10:43 Test 02/23/25 10:43 Range/Units Serum Glucose 140 H 74-106 mg/dL Objective O: AFVSS Chest: heart and lung sounds normal. Abd soft, non-tender, fundus firm, BS, no rebound or guarding, Incision - dressing and incision clean, dry, intact Ext Neg Homans, Non-tender, edema Lochia - minimal Labs Reviewed Assessment/Plan POD#1 s/p 1' C/S Plan: Continue supportive care, pain control, ambulate Meeting all milestone of recovery, possible D/C tomorrow Plan discussed with: Patient, Other (RN) Visit Coding OBGYN Date of Service: Feb 25, 2025 Billing Provider: HKURRAM FERNANDEZ DO STOVE FITTER Common Visit Codes: [id number] INP/OBS CARE(MOD) KHURRAM FERNANDEZ DO Feb 25, 2025 07:08
[2025-02-25] MEDS ORDERED: HYDR-4072 PO (10:34)
[2025-02-25] MEDS ORDERED: DOCU-94 PO (10:34)
[2025-02-25] MEDS ORDERED: IBUP-1456 PO ×2 (10:34→21:51)
[2025-02-25] MEDS ORDERED: HYDROcodone-ACET 5/325MG TAB PO PRN (12:15)
[2025-02-25] MEDS: HYDROcodone-ACET 5/325MG TAB PO PRN (12:25)
[2025-02-25] MEDS: IBUPROFEN 800 MG TAB PO PRN (14:33)
[2025-02-25] MEDS: SIMETHICONE 80 MG CHEWABLE TABLET PO SCH (17:33)
[2025-02-25] MEDS ORDERED: PREN-96 PO (21:51)
[2025-02-25] MEDS: DOCUSATE SOD 100 MG CAP PO SCH (22:07)
--- NOTE | 2025-02-26 00:28 | DVHPN2 ---
Progress Note Date Seen: Feb 26, 2025 Subjective S: bleeding is less, eating food without issues, denies lightheaded/dizziness, pain well controlled with oral medications, no concerns with urinating, passing flatus, no BM yet, ambulating well, vital signs Vital Sign Date Time Temp Pulse Resp B/P (MAP) Pulse Ox O2 Delivery O2 Flow Rate FiO2 02/25/25 23:03 98.3 91 18 124/77 (93) 97 98.3 02/25/25 19:00 Room Air 0.0 02/24/25 11:04 100 Total Intake and Output 02/25/25 02/25/25 02/26/25 15:00 23:00 07:00 Output Total 400 ml 550 ml Balance -400 ml -550 ml medications Current Medications Medications Dose Ordered Sig/William Route Start Time Stop Time Status Last Admin Dose Admin Lactated Ringer's 1,000 ml @ 125 mls/hr Q8H IV 02/23/25 10:30 02/25/25 04:56 125 MLS/HR Yael Yu 1 pad PRN PRN TOP 02/23/25 10:30 02/24/25 02:31 1 PAD Sodium Lauryl Sulfate 240 ml PRN PRN TOP 02/23/25 10:30 02/24/25 02:32 240 ML Benzocaine 1 applic PRN PRN TOP 02/23/25 10:30 02/24/25 02:31 1 APPLIC Lidocaine HCl 20 ml ONCE PRN IJ 02/23/25 10:30 Vancomycin HCl 200 ml @ 200 mls/hr Q12H IV 02/24/25 04:00 Cancel Cefazolin Sodium 50 ml @ 100 mls/hr Q8H IV 02/24/25 10:30 02/25/25 02:59 Cancel Gentamicin Sulfate 0 ml @ 0 mls/hr PER PHARMACY IV 02/24/25 10:45 Cancel Diphenhydramine HCl 25 mg Q4HP PRN IV 02/24/25 11:30 Ondansetron HCl 4 mg Q4HP PRN IV 02/24/25 11:30 Ketorolac Tromethamine 30 mg Q6HP PRN IV 02/24/25 11:30 03/01/25 11:29 02/25/25 01:40 30 MG Acetaminophen 1,000 mg Q8H PRN IV 02/24/25 12:30 02/25/25 06:33 1,000 MG Docusate Sodium 100 mg Q12HR PO 02/25/25 22:00 02/25/25 22:07 100 MG Dimethicone 80 mg QID PO 02/25/25 18:00 02/25/25 22:08 80 MG Ibuprofen 800 mg Q8HP PRN PO 02/25/25 12:15 02/25/25 14:33 800 MG Acetaminophen/ Hydrocodone Bitart 1 tab Q4HPRN PRN PO 02/25/25 12:15 Acetaminophen/ Hydrocodone Bitart 2 tab Q4HPRN PRN PO 02/25/25 12:15 02/25/25 21:17 2 TAB laboratory and microbiology Laboratory Tests 02/25/25 03:44 02/23/25 10:43 Test 02/23/25 10:43 Range/Units Serum Glucose 140 H 74-106 mg/dL Objective O: VSS Chest: heart sounds normal and lung sounds clear bilaterally Abd: soft, non-tender, fundus at U/firm/midline, active bowel sounds, no rebound or guarding Incision: mariel open to air, clean/dry/intact, edges well approximated Ext: Non-tender, No edema, 2+ BLE DTRs Lochia: minimal See lab results Problems(with codes): (1) Precipitous drop in hematocrit (2) S/P primary low transverse Assessment/Plan A: 24yo now POD#2 s/p primary Rh+ Rubella Immune P: D/C home today Rx sent to pharmacy precautions and preeclampsia warning signs reviewed F/U with Dr. Hernandez in 1 week Plan discussed with: Patient, Spouse Visit Coding OBGYN Date of Service: Feb 26, 2025 Billing Provider: VIKTORIYA CARTER CNM MEDIA REPORTER Common Visit Codes: [id number] INP/OBS CARE(HIGH) VIKTORIYA CARTER CNM Feb 26, 2025 00:28
--- NOTE | 2025-02-26 00:28 | DVHDS2 ---
Obstetrics Discharge Summary Obstetrics Discharge Summary Date of Admission: Feb 23, 2025 Date of Discharge: Feb 26, 2025 Reason For Admission: Induction of Labor Procedures: NST, Ultrasound Intrapartum Procedures: (primary LTCS) Procedures: Antibiotics, Hct/date: (02/25/25), Hgb/date: (02/25/25) Operative Complicat: None Discharge Diagnosis: Term -Delivered Discharge Information: Activity (as tolerated, no heavy lifting and nothing in the vagina for 6 weeks), Diet (Routine), Medications (Rx sent), Instructions (Routine), Discharge to (Home), Accompanied by (partner), Discarge date (02/26/25) Visit Coding OBGYN Date of Service: Feb 26, 2025 Billing Provider: VIKOTRIYA CARTER CNM SALES DONOR RECRUITMENT REPRESENTATIVE Common Visit Codes: [id number] DISCH DAY <30MIN VIKTORIYA CARTER CNM Feb 26, 2025 00:28
[2025-02-26 02:59] VITALS: BP 118/74; PULSE 88; RESP 17; TEMP 98.1; O2SAT 97
[2025-02-26 06:30] VITALS: BP 115/71; PULSE 89; RESP 18; TEMP 97.9; O2SAT 97
== END 2025-02-26 11:06 | disposition home or self-care (01) | DRG 540 ==
LOC: LDRP 10:00
PROVIDERS: ADMIT Obstetrics & Gynecology; ATTEND Obstetrics & Gynecology
PROC: 3E0P7VZ Introduction of Hormone into Female Reproductive, Via Natural or Artificial Opening (ICD-10-PCS; 2025-02-23)
PROC: 3E0DXGC Introduction of Other Therapeutic Substance into Mouth and Pharynx, External Approach (ICD-10-PCS; 2025-02-24)
PROC: 10D00Z1 Extraction of Products of Conception, Low, Open Approach (ICD-10-PCS; principal; 2025-02-24 10:18)
DX: O48.0 Post-term pregnancy (principal); O98.32 Other infections with a predominantly sexual mode of transmission complicating childbirth; O77.0 Labor and delivery complicated by meconium in amniotic fluid; O99.214 Obesity complicating childbirth; E66.01 Morbid (severe) obesity due to excess calories; O76 Abnormality in fetal heart rate and rhythm complicating labor and delivery; Z3A.40 40 weeks gestation of pregnancy; Z37.0 Single live birth; A60.00 Herpesviral infection of urogenital system, unspecified; R71.0 Precipitous drop in hematocrit
CPT/HCPCS: 36415; 62282; 76815; 76819; 80053; 80307; 81001; 81002; 85025; 85610; 85730; 86703; 86762; 86780; 86803; 86850; 86900; 86901; 87340; 94760; 94762; 96360; 96361; 96374; G0378; J0131; J1885; J2405; J2590; J3490; J7060